=== PATIENT | male | born 1985 | race Caucasian/White ===

== ENCOUNTER 2018-03-08 22:16 | Emergency (ER) | payer OTHER ==
[2018-03-08 22:35] VITALS: RESP 20; TEMP 98.2
--- NOTE | 2018-03-09 00:20 | C.PDOC ---
History Of Present Illness 32 year old male presents to the ER with a complaint of left foot pain after sliding down a water slide earlier today. 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 Patient states he was unable to reposition his leg while going down the slide which caused the injury. Denies any other injuries at this time. Time Seen by Provider: 03/08/18 22:36 Chief Complaint (Nursing): Lower Extremity Problem/Injury History Per: Patient History/Exam Limitations: no limitations Onset/Duration Of Symptoms: Hrs Current Symptoms Are (Timing): Still Present Recent travel outside of the [place]: No - Ankle/Foot Description Of Injury: Other (Sliding down water slide) Past Medical History Reviewed: Historical Data, Nursing Documentation, Vital Signs Vital Signs: Last Vital Signs Temp 98.2 F 03/08/18 22:30 Pulse 88 03/09/18 01:50 Resp 20 03/09/18 01:50 BP 119/85 03/09/18 01:50 Pulse Ox 99 03/09/18 01:50 Family History: States: Unknown Family Hx - Social History Hx Alcohol Use: No Hx Substance Use: No Review Of Systems Musculoskeletal: Positive for: Foot Pain Skin: Negative for: Lesions, Bruising Physical Exam - Physical Exam Appears: Non-toxic Skin: Normal Color, Warm, Dry Head: Atraumatic, Normacephalic Eye(s): bilateral: Normal Inspection Extremity: Other (Left leg chronically externally rotated. Tenderness to left medial malleolus, no swelling.) Pulses: Left Dorsalis Pedis: Normal, Right Dorsalis Pedis: Normal Neurological/Psych: Oriented x3, Normal Speech ED Course And Treatment O2 Sat by Pulse Oximetry: 95 (Room air) Pulse Ox Interpretation: Normal - CT Scan/US CT left lower extremity Other Rad Studies (CT/US): Read By Radiologist, Radiology Report Reviewed CT/US Interpretation: EXAM: CT Left Lower Extremity Without Intravenous Contrast. CLINICAL HISTORY: 32 years old, male; Pain and injury or trauma; Fall; Initial encounter; Fracture, traumatic; Closed. fracture; Ankle and foot ; Left; Not specified; Additional info: Pt with h/o muscle distrophy with new. injury,. TECHNIQUE: Axial computed tomography images of the left lower extremity without intravenous contrast. All CT. scans at this facility use at least one of these dose optimization techniques: automated exposure. control; mA and/or kV adjustment per patient size (includes targeted exams where dose is matched to. clinical indication); or iterative reconstruction. Coronal and sagittal reformatted images were created and reviewed. COMPARISON: No relevant prior studies available. FINDINGS: Bones/joints: Osteopenia. No fracture. No dislocation. Soft tissues: Atrophic muscular tear in the lower leg. IMPRESSION: Osteopenia. No fracture. Progress Note: Left ankle/foot x-ray and CT of left lower extremity ordered, results were negative. Motrin administered. Juan Jose wrap to the left foot/ankle. crutches with instructions provided. Patient is resting comfortably in the ER in no acute distress, vitals are stable, will discharge home with Rx and instructions to follow up with PMD for further evaluation. Disposition - Disposition Disposition: HOME/ ROUTINE Disposition Time: 01:27 Condition: STABLE Additional Instructions: Follow up with Orthopedist within 1-2 days. Return to ED if feel worse. Prescriptions: Ibuprofen [Motrin Tab] 600 mg PO Q8 #30 tab Instructions: Ankle Sprain (DC) Forms: [employer] (Algerian) - Clinical Impression Clinical Impression: Ankle sprain - PA / [employer] CLERK / Resident Statement MD/DO has reviewed & agrees with the documentation as recorded. - Scribe Statement The provider has reviewed the documentation as recorded by the Scribjoy Maldonado All medical record entries made by the Raineribjoy were at my direction and personally dictated by me. I have reviewed the chart and agree that the record accurately reflects my personal performance of the history, physical exam, medical decision making, and the department course for this patient. I have also personally directed, reviewed, and agree with the discharge instructions and disposition.
[2018-03-09 01:51] VITALS: BP 119/85; PULSE 88
[2018-03-09 03:46] VITALS: O2SAT 95
--- NOTE | 2018-03-09 10:56 | RAD ---
Date of service: 03/08/2018 PROCEDURE: Left Foot Radiographs. HISTORY: injury COMPARISON: None. FINDINGS: BONES: No acute fracture or dislocation appreciable grossly. Prominent deformity of the left foot is identified including foreshortened 4th metatarsal bone and gross pes cavus deformity. Diffuse osteopenia suggests osteoporosis. JOINTS: No subluxation or dislocation. SOFT TISSUES: Normal. OTHER FINDINGS: None. IMPRESSION: Gross pes cavus deformity with foreshortening of the 4th metatarsal bone. No acute fracture dislocation identified. Diffuse osteopenia suggests osteoporosis.
--- NOTE | 2018-03-09 10:57 | RAD ---
Date of service: 03/08/2018 PROCEDURE: Left Ankle Radiographs. HISTORY: injury COMPARISON: None FINDINGS: BONES: No acute fracture or destructive bony lesion identified. JOINTS: Gross pes cavus deformity limits evaluation the ankle mortise. The talar dome appears unremarkable. Diffuse osteopenia suggests osteoporosis. SOFT TISSUES: Normal. OTHER FINDINGS: None. IMPRESSION: Deformed ankle due to gross pes cavus deformity of the left foot. No acute fracture, subluxation or dislocation grossly evident. Diffuse osteopenia suggests osteoporosis.
--- NOTE | 2018-03-09 15:59 | CT ---
Date of service: 03/08/2018 PROCEDURE: CT LEFT FOOT WITHOUT CONTRAST HISTORY: pt with h/o muscle distrophy with new injury, COMPARISON: Left foot radiographs 03/08/2018. TECHNIQUE: A volumetric CT acquisition of the left foot is in performed without intravenous contrast as requested with multiplanar reformatted datasets provided for interpretation by various techniques. Contrast Dose: None Radiation dose:Total exam DLP = 329.78 mGy-cm. This CT exam was performed using one or more of the following dose reduction techniques: Automated exposure control, adjustment of the mA and/or kV according to patient size, and/or use of iterative reconstruction technique. FINDINGS: Diffuse osteopenia suggests osteoporosis. No fracture, subluxation or dislocation. Marked pes cavus deformity reiterated. Foreshortening of the left 4th metatarsal bone reiterated. Local soft tissues appear diffusely unremarkable. No retained radiodense foreign body appreciable. IMPRESSION: No acute fracture identified, subluxation or dislocation. Prominent pes cavus deformity appreciated. Diffuse osteopenia suggests osteoporosis. Concordant preliminary report from [facility], 03/09/2018.
== END 2018-03-09 02:38 | disposition home or self-care (01) ==
LOC: C.ER 22:16
DX: S93.402A Sprain of unspecified ligament of left ankle, initial encounter (principal); X58.XXXA Exposure to other specified factors, initial encounter